=== PATIENT | male | born 1960 | race Caucasian/White ===

== ENCOUNTER 2022-09-05 13:33 | Outpatient (REF) | payer OTHER, SELFPAY ==
--- NOTE | 2022-09-05 14:46 | MHC.AU.HA1 ---
Hearing Aid Evaluation Date of Visit: 09/05/22 Historical Information: Description of Hearing: Mild to moderately-severe sensorineural hearing loss, bilaterally Current personal amplification information: Described at [facility] purchased 3 years ago at [facility] in [place] Summary: Raghu reported that he has had hearing loss for several years. He purchased hearing aids about three years ago but never fully acclimated to them despite multiple programming adjustments. He reported that he never wore them consistently because he did not hear naturally and heard too much static. Now the hearing aids are reportedly not working but he did not bring them to this appointment. Raghu is hoping new hearing aids will help ease some of his communication difficulties especially at work. 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 He also has trouble at home hearing the television as well as family members and often needs frequent repetition. Discussed realistic expectations of hearing aids and emphasized acclimatization period with importance of consistent use. Raghu reported that he is ready and motivated to try hearing aids again as he has several friends that have been successful with them. Hearing Aid Prescription: Based on the individual?s shared listening needs, communication environments, dexterity, desire for connectivity, and personal preferences, the following prescription for amplification has been made: Right ear: Make, Model, Color: Phonak Audeo L70-R Color: Champagne Battery Size: Rechargeable Director Physical Therapy/Slim Tube: 1P Type of Earmold/Dome/CShell/SlimTip: c-shell Left ear: Left ear prescription to be same as Right Hearing Aid above: Make, Model, Color: Phonak Audeo L70-R Color: Champagne Battery Size: Rechargeable Director Physical Therapy/Slim Tube: 2P Type of Earmold/Dome/CShell/SlimTip: c-shell Plan of Care: Patient wishes to purchase hearing aids as prescribed Action Taken/Action Needed: Earmold Impressions Taken. Hearing Instrument Fitting to be scheduled when materials arrive Primary Diagnosis: H90.3 Bilateral Sensorineural Hearing Loss Signature: Provider: Margie Rebollar, [facility]
== END 2022-09-05 13:34 | disposition home or self-care (01) ==
LOC: HO.HAP 13:33
PROVIDERS: Visit Provider Otolaryngology
DX: Z46.1 Encounter for fitting and adjustment of hearing aid (principal); H90.3 Sensorineural hearing loss, bilateral
CPT/HCPCS: 92591; V5275

== ENCOUNTER 2022-09-30 10:42 | Outpatient (REF) | payer OTHER, SELFPAY ==
--- NOTE | 2022-09-30 11:37 | MHC.AU.HA2 ---
Hearing Instrument Fitting- Adult- Binaural Date of Visit: 09/30/22 Hearing Instruments Dispensed: Right Ear: Sarkis, Model, Color, Serial Number: Shane Laurent L70-R SN: [id number] Color: Rustyagne Sound Designer Repair Warranty: 12/17/2025 Sound Designer Loss and Damage Warranty: 12/17/2025 [facility] Service Plan: 10/01/2023 Battery Size: Rechargeable Manager Machine/Slim Tube: 1P Earmold/Dome/CShell/SlimTip: c-shell SN: [id number] Aaron: 12/16/2022 Type of Wax Guard: CeruStop Left Ear: Sarkis, Model, Color, Serial Number: Shane Laurent L70-R SN: [id number] Color: Share Sound Designer Repair Warranty: 12/17/2025 Sound Designer Loss and Damage Warranty: 12/17/2025 [facility] Service Plan: 10/01/2023 Battery Size: Rechargeable Manager Machine/Slim Tube: 2P Earmold/Dome/CShell/SlimTip: c-shell SN: [id number] Aaron: 12/16/2022 Type of Wax Guard: CeruStop Summary of Fitting: Performed feedback corporate security manager and real ear measurements. Decreased to 80% gain level at Raghu's request. Discussed care, use, and rechargeability including manually turning on/off, volume control use, and changing wax guard. Practiced insertion/removal. Paired to cell phone and confirmed successful connection. Maverick will download the [email or web address] rosalva at home. Maverick has had hearing aids in the past that he never adapted to as he never wore consistently - discussed the importance of and reason for consistent use as well as the acclimatization period. Recommendations: A hearing instrument follow-up was scheduled. Diagnosis Code(s): Primary Diagnosis: H90.3 Bilateral Sensorineural Hearing Loss Signature: Provider: Margie Rebollar, [facility]
== END 2022-09-30 10:43 | disposition home or self-care (01) ==
LOC: HO.HAP 10:42
PROVIDERS: Visit Provider Otolaryngology
DX: Z46.1 Encounter for fitting and adjustment of hearing aid (principal); H90.3 Sensorineural hearing loss, bilateral
CPT/HCPCS: V5011; V5020; V5160; V5261; V5264

== ENCOUNTER 2022-10-20 09:59 | Outpatient (REF) | payer OTHER, SELFPAY ==
--- NOTE | 2022-10-20 10:27 | MHC.AU.HA3 ---
Hearing Instrument Follow-Up- Binaural Date of Visit: 10/20/22 Right Ear: Sarkis, Model, Color, Serial Number: Shane Laurent L70-R SN: [id number] Color: Noelle Well Puller Repair Warranty: 12/17/2025 Well Puller Loss and Damage Warranty: 12/17/2025 [facility] Service Plan: 10/01/2023 Battery Size: Rechargeable Greenhouse Technician/Slim Tube: 1P Earmold/Dome/CShell/SlimTip:c-shell SN: [id number] Aaron: 12/16/2022 Type of Wax Guard: CeruStop Dispensed By: [facility] Date of Fittin09/30/2022 Left Ear: Sarkis, Model, Color, Serial Number: Shane Laurent L70-R SN: [id number] Color: Noelle Well Puller Repair Warranty: 12/17/2025 Well Puller Loss and Damage Warranty: 12/17/2025 [facility] Service Plan: 10/01/2023 Battery Size: Rechargeable Greenhouse Technician/Slim Tube: 2P Earmold/Dome/CShell/SlimTip: c-shell SN: [id number] Aaron: 12/16/2022 Type of Wax Guard: CeruStop Dispensed By: [facility] Date of Fittin09/30/2022 Follow-Up Summary: Raghu reported that five days after being fit with hearing aids the right one stopped working and more recently the left one sounded weak. Upon inspection, both wax guards plugged. Otoscopy showed only slight wax, bilaterally. Reinstructed how to change wax guard. Data logging showed about 3 hours of use per day; however, Raghu stopped wearing the hearing aids once they stopped working. During the first five days, he noticed significant benefit from the hearing aids especially while watching television as well as through his cell phone. He requested an increase in volume so settings were increased to 90% gain level. Also reinstructed on volume control use. Raghu requested to schedule another follow up to check in, as he did not have ample time to use the hearing aids in his daily interactions. Also discussed calling as soon as problems arise. Recommendations: An additional follow-up was scheduled to monitor progress. Diagnosis Code(s): Primary Diagnosis: H90.3 Bilateral Sensorineural Hearing Loss Signature: Provider: Margie Rebollar, [facility]
== END 2022-10-20 10:00 | disposition home or self-care (01) ==
LOC: HO.HAP 09:59
PROVIDERS: Visit Provider Otolaryngology
DX: Z13.89 Encounter for screening for other disorder (principal)

== ENCOUNTER 2023-11-04 16:07 | Outpatient (REF) | payer SELFPAY | END 2023-11-04 16:08 | disposition home or self-care (01) | LOC: HO.HAP 16:07 | PROVIDERS: PCP Family Medicine; Visit Provider Otolaryngology | DX: Z46.1 Encounter for fitting and adjustment of hearing aid (principal); H90.3 Sensorineural hearing loss, bilateral | CPT/HCPCS: 92593 ==

== ENCOUNTER 2023-11-04 16:29 | Outpatient (REF) | payer SELFPAY | END 2023-11-04 16:30 | disposition home or self-care (01) | LOC: HO.HAP 16:29 | PROVIDERS: Visit Provider Family Medicine | DX: Z46.1 Encounter for fitting and adjustment of hearing aid (principal) | CPT/HCPCS: 92592 ==

== ENCOUNTER 2023-11-20 16:20 | Outpatient (REF) | payer SELFPAY | END 2023-11-20 16:21 | disposition home or self-care (01) | LOC: HO.HAP 16:20 | PROVIDERS: Visit Provider Family Medicine | DX: Z13.89 Encounter for screening for other disorder (principal) ==

== ENCOUNTER 2024-05-16 13:52 | Outpatient (REF) | payer OTHER, SELFPAY ==
--- NOTE | 2024-05-16 14:40 | MHC.AU.HA3 ---
Hearing Instrument Follow-Up- Binaural Date of Visit: 05/16/24 Right Ear: Sarkis, Model, Color, Serial Number: Shane Laurent L70-R SN: [id number] Color: Rustyagne Die Cast Engineer Repair Warranty: 12/17/2025 Die Cast Engineer Loss and Damage Warranty: 12/17/2025 [facility] Service Plan: 10/01/2023 Battery Size: Rechargeable Blender / Cook/Slim Tube: 1P Earmold/Dome/CShell/SlimTip:c-shell SN: [id number] Aaron: 12/16/2022 Type of Wax Guard: CeruStop Dispensed By: [facility] Date of Fittin09/30/2022 Left Ear: Make, Model, Color, Serial Number: Shane Laurent L70-R SN: [id number] Color: Rustyagne Die Cast Engineer Repair Warranty: 12/17/2025 Die Cast Engineer Loss and Damage Warranty: 12/17/2025 [facility] Service Plan: 10/01/2023 Battery Size: Rechargeable Blender / Cook/Slim Tube: 2P Earmold/Dome/CShell/SlimTip: c-shell SN: [id number] Aaron: 12/16/2022 Type of Wax Guard: CeruStop Dispensed By: [facility] Date of Fittin09/30/2022 Follow-Up Summary: Maverick reports that he has new insurance and would like to get his c-shells replaced. Both are missing wax guards. Reports feeling that aids are intermittent due to missing wax guards. Cleaned and checked aids, vacuumed out middleware engineer ports. Listening check positive. Advised his [employer] plan does not have hearing aid coverage and c-shells would still be OOP at this time. Quote $290 for pair. Maverick agrees to this. Ordering duplicates. Recommendations: Recommendations: Patient will be contacted when materials have arrived. Diagnosis Code(s): Primary Diagnosis: H90.3 Bilateral Sensorineural Hearing Loss Signature: Provider: Margie Vance, [facility]
== END 2024-05-16 13:53 | disposition home or self-care (01) ==
LOC: HO.HAP 13:52
PROVIDERS: Visit Provider Family Medicine
DX: Z13.89 Encounter for screening for other disorder (principal)

== ENCOUNTER 2024-05-30 14:12 | Outpatient (REF) | payer SELFPAY ==
--- NOTE | 2024-05-30 15:07 | MHC.AU.HA3 ---
Hearing Instrument Follow-Up- Binaural Date of Visit: 05/30/24 Right Ear: Make, Model, Color, Serial Number: Shane Laurent L70-R SN: [id number] Color: Rustyagne Stevedoring Supervisor Repair Warranty: 12/17/2025 Stevedoring Supervisor Loss and Damage Warranty: 12/17/2025 [facility] Service Plan: 10/01/2023 Battery Size: Rechargeable Guard Dance Hall/Slim Tube: 1P Earmold/Dome/CShell/SlimTip:c-shell SN: [id number] Aaron: 09/16/2024 Type of Wax Guard: CeruStop Dispensed By: [facility] Date of Fittin09/30/2022 Left Ear: Make, Model, Color, Serial Number: Shane Laurent L70-R SN: [id number] Color: Rustyagne Stevedoring Supervisor Repair Warranty: 12/17/2025 Stevedoring Supervisor Loss and Damage Warranty: 12/17/2025 [facility] Service Plan: 10/01/2023 Battery Size: Rechargeable Guard Dance Hall/Slim Tube: 2P Earmold/Dome/CShell/SlimTip: c-shell SN: [id number] Aaron: 09/16/2024 Type of Wax Guard: CeruStop Dispensed By: [facility] Date of Fittin09/30/2022 Follow-Up Summary: Dispensed new c-shells. Good subjective comfort and benefit reported. Gave Maverick his old c-shells to hold on to as back up. Recommendations: Recommendations: Hearing instrument follow-up or maintenance as needed. Diagnosis Code(s): Primary Diagnosis: H90.3 Bilateral Sensorineural Hearing Loss Signature: Provider: Margie Vance, CCC-A
== END 2024-05-30 14:13 | disposition home or self-care (01) ==
LOC: HO.HAP 14:12
PROVIDERS: Visit Provider Family Medicine
DX: Z46.1 Encounter for fitting and adjustment of hearing aid (principal); H90.3 Sensorineural hearing loss, bilateral
CPT/HCPCS: V5264

== ENCOUNTER 2025-05-04 11:04 | Outpatient (REF) | payer SELFPAY | END 2025-05-04 11:05 | disposition home or self-care (01) | LOC: HO.HAP 11:04 | PROVIDERS: Visit Provider Family Medicine | DX: Z13.89 Encounter for screening for other disorder (principal) ==

== ENCOUNTER 2025-05-31 14:48 | Outpatient (REF) | payer SELFPAY ==
--- OUTSIDE RECORDS SUMMARY | 2025-05-31 17:56 | XMS_ITS | Clinical Summary ---
Author Organization [facility] [address] [facility] Building Address [address] [place], [place] Phone Care Team Providers Care Chemical Production Technician Name Role Phone Olga Doss DO Primary Care Provider [phone] Allergies No known active allergies Medications meclizine (ANTIVERT) 12.5 mg tablet Take 1 Tablet by mouth 3 times daily as needed (dizziness) . 04/20/20 24 Active cyanocobalamin (VITAMIN B-12) 1,000 mcg tablet Take 1 tablet (1,000 mcg total) by mouth 1 (one) time each day. 03/17/20 20 Active metoprolol tartrate (LOPRESSOR) 50 mg tablet TAKE ONE TABLET BY MOUTH TWICE A DAY 180 tablet 1 08/30/19 25 Active bismuth subsalicylate 525 mg/15 mL suspensionIndicat ions:Helicobacter pylori infection Take 15 mL by mouth 4 (four) times a day. 840 mL 04/30/20 25 Active pravastatin (PRAVACHOL) 20 mg tablet TAKE ONE TABLET BY MOUTH EVERY DAY 30 tablet 05/17/20 25 Active pantoprazole (PROTONIX) 40 mg EC tablet TAKE ONE TABLET BY MOUTH EVERY DAY 30 tablet 05/17/20 25 Active amLODIPine (NORVASC) 10 mg tablet TAKE ONE TABLET BY MOUTH EVERY DAY 30 tablet 05/17/20 25 Active lisinopril (PRINIVIL,ZESTRIL ) 40 mg tablet TAKE ONE TABLET BY MOUTH EVERY DAY 30 tablet 05/17/20 Active allopurinoL (ZYLOPRIM) 100 mg tablet TAKE TWO TABLETS BY MOUTH EVERY DAY 60 tablet 05/17/20 Active pravastatin (PRAVACHOL) 20 mg tablet TAKE ONE TABLET BY MOUTH EVERY DAY 90 tablet 1 11/19/19 25 025 Discontinued pantoprazole (PROTONIX) 40 mg EC tablet TAKE ONE TABLET BY MOUTH EVERY DAY 90 tablet 1 11/19/19 25 025 Discontinued amLODIPine (NORVASC) 10 mg tablet TAKE ONE TABLET BY MOUTH EVERY DAY 90 tablet 1 11/19/19 25 025 Discontinued lisinopril (PRINIVIL,ZESTRIL ) 40 mg tablet TAKE ONE TABLET BY MOUTH EVERY DAY 90 tablet 1 11/19/19 025 Discontinued allopurinoL (ZYLOPRIM) 100 mg tablet TAKE TWO TABLETS BY MOUTH EVERY DAY 180 tablet 1 11/19/19 025 Discontinued metroNIDAZOLE (FLAGYL) 250 mg tabletIndications :Helicobacter pylori infection Take 1 tablet (250 mg total) by mouth 4 (four) times a day for 14 days. Do not use mouth wash or consume alcohol until 48 hours after last dose 56 tablet 04/30/20 025 tetracycline (ACHROMYCIN,SUMYC IN) 500 mg capsuleIndication s:Helicobacter pylori infection Take 1 capsule (500 mg total) by mouth 4 (four) times a day for 14 days. 56 capsule 04/30/20 025 Active Problems Problem Noted Date Diagnosed Date Dyspnea 10/28/2022 Overview (05/17/2024): Last Assessment & Plan: Given the normal results of the pulmonary function test, his absence of pulmonary symptoms like wheezing or cough, normal chest x-ray and confident that the cause of the dyspnea is not pulmonary. He may have some deconditioning but I am interested to know the results of the echocardiogram. Given his cardiovascular risk factors I do think it is appropriate for him to be evaluated by cardiology for possible stress test. 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 Allopurinol started 08/14 Primary osteoarthritis of both hands 06/29/2018 DDD (degenerative disc disease), lumbar 07/23/20 17 Foot pain 07/23/2017 GERD (gastroesophageal reflux disease) 6 Overview (05/17/2024): 10/12 normal EGD Hyperlipidemia 08/08/2015 Hypertension 08/08/2015 Encounters Date Type Department Care Team Description 05/16/2025 9:15 AM EDT Office Visit Orthopedic Surgery [facility] [address] [phone] Marla Sprague MD Calcific tendinitis of left shoulder (Primary Dx) 04/30/2025 Results Follow-Up Gastroenterology - [place] 175 [facility] 175 [facility] [address] [place] [address] Augusto Trejo MD 04/13/2025 9:10 AM EDT Ancillary Procedure Orthopedic Surgery - [place] [address] [phone] Calcific tendinitis of left shoulder 04/13/2025 8:45 AM EDT Office Visit Orthopedic Surgery [facility] [address] [phone] Marla Sprague MD Calcific tendinitis of left shoulder (Primary Dx) 03/28/2025 8:53 AM EDT Anesthesia Event [facility] Endoscopy [address] [place] [address] Zack Gonzalez MD 03/28/2025 7:26 AM EDT - 03/28/2025 11:59 PM EDT Hospital Encounter [facility] End[facility] [address] [place] [address] Augusto Trejo MD Georgette, Nathaniel, CRNA Spencer, Mark A, MD Dyspepsia; Gastroesophageal reflux disease, unspecified whether esophagitis present; Dysphagia, unspecified type Discharge Disposition: Home or Self Care 03/21/2025 9:00 AM EDT Office Visit Orthopedic Surgery - [place] [address] [place] [address] Charleen Kenny PA Calcific tendinitis of left shoulder (Primary Dx); Subacromial bursitis of right shoulder joint from Last 3 Months Immunizations Immunization Administration Dates Next Due Influenza Quadravalent, MDCK , 0.5ml, preservative free (Flucelvax) 6mo and older 05/25/2020,06/02/2018 Influenza trivalent, MDCK, 0 .5mL, preservative free (Flucelvax) 6mo and older 06/16/2024 Td Tetanus diptheria (Tdvax) 7yo and older 09/04 Tdap Tetanus diptheria acell ular pertussis (Boostrix; Adacel) 7yo and older 06/24/2007 Surgical History Surgery Date Site/Laterality Comments OTHER SURGICAL HISTORY 10/2018 Right PROCEDURE: ---- OTHER ----; COMMENT: ulnar entrapment at elbow FOOT SURGERY Left PROCEDURE: HISTORICAL FOOT SURGERY OTHER SURGICAL HISTORY PROCEDURE: ---- OTHER ----; COMMENT: superficial cyst removal from back FOOT SURGERY 11/19/2018 Left PROCEDURE: HISTORICAL FOOT SURGERY; COMMENT: left 3rd webspace bursectomy OTHER SURGICAL HISTORY 03/2021 PROCEDURE: HISTORICAL CA BASAL CELL; COMMENT: R neck Medical History Medical History Date Comments GERD (gastroesophageal reflux disease) 08/08/2015 DX:GERD (gastroesophageal reflux disease) Hyperlipidemia 08/08/2015 DX:Hyperlipidemi a Hypertension 08/08/2015 DX:Hypertension DDD (degenerative disc disease), lumbar 07/23/20 DX:DDD (degenerative disc disease), lumbar Gout 08/05/2018 DX:Gout; COMMENT : Recurrent attacks - feet. Allopurinol started 08/14 Blood pressure check DX:Blood pr essure check History of basal cell carcinoma 03/18/2021 DX:History of basal cell carcinoma; COMMENT: BCC 03/16 right shoulder (nodular) History of basal cell carcinoma 03/18/2021 DX:History of basal cell carcinoma Family History Medical History Relation Name Comments Alzheimer's disease Father Heart attack Mother Hypertension Mother Leukemia Sister Diabetes Neg Hx Relation Name Status Comments Father Mother Sister Social History Tobacco Use Types Packs/Day Years Used Date Smoking Tobacco: Never Smokeless Tobacco: Never Tobacco Cessation:Counseling Given: Not Answered Alcohol Use Standard Drinks/Week Comments Yes 0 (1 standard drink = 0.6 oz pur e alcohol) Interpersonal Safety Answer Date Record ed Physical Abuse Unrecognized value 03/28/2025 Verbal Abuse Unrecognized value 03/28/2025 Sex and Gender Information Value Date Recorded Sex Assigned at Male 10/10/2024 9:17 AM EDT Legal Sex Male 12:21 PM EST Gender Identity Male 10/10/2024 9:17 AM EDT Sexual Orientation Straight 10/10/2024 9: 17 AM EDT Obstetrics History Last Filed Vital Signs Vital Sign Reading Time Taken Comments Blood Pressure 113/87 03/28/2025 9:25 AM EDT Pulse 60 03/28/2025 9:25 AM EDT Temperature 36.5 C (97.7 F) 03/28/2025 8:39 AM EDT Respiratory Rate 16 03/28/2025 9:25 AM EDT Oxygen Saturation 99% 03/28/2025 9:25 AM EDT Inhaled Oxygen Concentration - - Weight 75.8 kg (167 lb) 05/16/2025 9:27 AM EDT Height 167.6 cm (5' 5.98 ) 05/16/2025 9:27 AM ED T Body Mass Index 26.97 05/16/2025 9:27 AM EDT Plan of Treatment Upcoming Encounters Date Type Department Care Team (Late st Contact Info) Description 06/20/2025 8:30 AM EST Office Visit [facility] Medicine - [facility] [address] [place], [place] [phone] Pilo Ortiz PA [address] [place] [address] Health Maintenance Due Date Last Done Comments Zoster Vaccines (1 of 2) 1980 Pneumococcal Vaccine: 50+ Years (1 of 1 - PCV) 2011 HIV Screening 07/05/2022 Social Influencers of Health Screening 07/05/2022 Depression Screening 07/27/2024 COVID-19 Vaccine (4 - 2024-2 6 season) 2025 07/08/2021, 10/30/2020, 10/09/2020 Influenza Vaccine (#1) 2025 , 05/25/2020, 06/02/2018 Hypertension/CHF/CAD Annual BMP Blood Test 09/01/2025 09/01/2024, 04/20/2024, 04/20/2024 DTaP,Tdap,and Td Vaccines (3 - Td or Tdap) 09/04/2027 09/04/2017, 06/24/2007 Cholesterol Screening (Lipid Panel) 04/20/2029 04/20/2024, 04/20/2024 Colorectal Cancer Screening: Colonoscopy 03/16/2030 03/16/2020 RSV Immunization Adult Patients (1 - 1-dose 75+ series) 2036 Hepatitis C Screening Completed 02/10/2017 HIB Vaccines Aged Out No longer eligi ble based on patient's age to complete this topic HPV Vaccines Aged Out No longer eligi ble based on patient's age to complete this topic Hepatitis A Vaccines Aged Out No long er eligible based on patient's age to complete this topic Hepatitis B Vaccines Aged Out No long er eligible based on patient's age to complete this topic IPV Vaccines Aged Out No longer eligi ble based on patient's age to complete this topic MMR Vaccines Aged Out No longer eligi ble based on patient's age to complete this topic Meningococcal ACWY Vaccine Aged Out N o longer eligible based on patient's age to complete this topic Meningococcal B Vaccine Aged Out No l onger eligible based on patient's age to complete this topic RSV Immunization Patients Under 20 months Aged Out No longer eligible b ased on patient's age to complete this topic Varicella Vaccines Aged Out No longer eligible based on patient's age to complete this topic Procedures Procedure Name Priority Date/Time Associated Diagnosis Comments US INJ TENDON ORIGIN/INSERT SGL Routine 04/13/2025 9:08 AM EDT Calcific tendinitis of left shoulder NE ARTHROCENTESIS/ASPIRAT ION/INJECTION MAJOR JOINT/BURSA W/O U/S GUIDANCE Routine 04/13/2025 8:45 AM EDT Calcific tendinitis of left shoulder EGD Routine 03/28/2025 9:04 AM EDT Dyspepsia Gastroesophageal reflux disease, unspecified whether esophagitis present Dysphagia, unspecified type TISSUE EXAM Routine 03/28/2025 9:01 AM EDT Dyspepsia Gastroesophageal reflux disease, unspecified whether esophagitis present Dysphagia, unspecified type COMPREHENSIVE METABOLIC PANEL Routine 09/01/2024 11:46 AM EST Dyspnea, unspecified type LIPID PANEL Routine 04/20/2024 COLONOSCOPY Routine 03/16/2020 HEPATITIS C SCREENING Routine 02/10/2017 from Last 3 Months or Most Recently Relevant to Health Maintenance Results * US Inj Tendon Origin/insert Sgl (04/13/2025 9:08 AM EDT) Anatomical Region Laterality Modality Extremity Ultrasound Narrative 04/13/2025 10:47 AM EDT [place] note: Left Shoulder ultrasound-guided barbotage for calcific tendinopathy. Risk including infection,, neurovascular injury and tendon rupture were thoroughly discussed with the patient. The patient understood the risks and gave verbal consent for the procedure. The anterior shoulder was prepped with Chloro-prep after anatomical landmarks where palpated and visualized with ultrasound. Ethyle chloride was used as to topical anesthetic. Then using a 23-gauge 1-1/2 inch needle lidocaine 2 mL was used as a local anesthetic and under ultrasound guidance the needle was guided to the calcific deposit where multiple passes were made through to the deposit and lidocaine 4cc was injected for anesthesia. trace debris was aspirated. Using sterile technique under ultrasound guidance without complications. The patient tolerated the procedure well. Aftercare was thoroughly discussed with the patient. Images were recorded and will permanently stored in patients medical record. PROCEDURE: Left Shoulder Subdeltoid subacromial bursal injection forcalcific tendonosis . Risk including infection, post-injection steriod flare, hypopigmentation, neurovascular injury and fat atrophy, were thoroughly discussed with the patient. The patients understood the risks and gave verbal consent for the procedure. The left shoulder was prepped with Chloro-prep after anatomical landmarks where palpated and visualized with ultrasound. Ethyle chloride was used as to topical anesthetic. Then using a 23-gauge 1-1/2 inch needle after which lidocaine 2 mL was used as a local anesthetic Kenalog 40mg and lidocaine 2 cc were injected into the subacromial bursa using sterile technique under ultrasound guidance without complications. The patient tolerated the procedure well. Aftercare was thoroughly discussed with the patient. Images were recorded and will permanently stored in patients medical record. us Marla Sprague MD IMG US PROCEDURES Final Result * NE ARTHROCENTESIS/ASPIRATION/INJECTION MAJOR JOINT/BURSA W/O U/S GUIDANCE (04/13/2025 8:45 AM EDT) Narrative Marla Sprague MD - 04/13/2025 8:45 AM EDT Marla Sprague MD 04/13/2025 10:49 AM L Inj/Asp: L subacromial bursa Indications: pain Details: 22 G needle, (guidance: US guided ) Medications: 4 mL lidocaine 1 %; 40 mg triamcinolone acetonide 40 mg/mL Outcome: tolerated well, no immediate complications See imaging result note for full details of ultrasound-guided barbotage procedure and subacromial cortisone injection. Informed Consent: Laterality: Left Relevant images/test results available and reviewed: yes Health status cleared: Yes Procedure/treatment, purpose, treatment alternatives, risks/potential complications and benefits explained: yes Risk/complications/benefits details: Include bleeding, infection, increase in pain Patient questions answered: yes Patient agrees, verbalizes understanding, and wants to proceed: yes Consent given by: Patient Informed consent discussion completed by Physician/SHUKRI with patient: Verbal Pre-procedure timeout performed: yes us Marla Sprague MD IN CLINIC/BEDSIDE ORDERABLES F inal Result * EGD Anesthesia - MAC; [facility] ENDOSCOPY (03/28/2025 9:04 AM EDT) Anatomical Region Laterality Modality Endoscopy 03/28/2025 8:55 AM EDT Impressions 03/28/2025 9:06 AM EDT - Normal examined duodenum. - Gastritis. Biopsied. - Normal esophagus. Recommendation: - Discharge patient to home. - Await pathology results. - Return to GI clinic as previously scheduled. Narrative 03/28/2025 9:06 AM EDT [facility] GI Patient Name: Raghu Angela Procedure Date: 03/28/2025 8:55 AM Date of : 1960 Age: 64 Gender: Male Note Status: Finalized Attending MD: Augusto Trejo MD, Procedure Date No Time: 03/28/2025 Procedure: Upper GI endoscopy Indications: New-onset upper abdominal symptoms in patient older than 50 years, Dyspepsia Providers: Augusto Trejo MD Referring MD: Augusto Trejo MD Medicines: Monitored Anesthesia Care Complications: No immediate complications. Estimated blood loss: Minimal. Estimated Blood Loss: Estimated blood loss was minimal. Procedure: Pre-Anesthesia Assessment: - Prior to the procedure, a History and Physical was performed, and patient medications and allergies were reviewed. The patient is competent. The risks and benefits of the procedure and the sedation options and risks were discussed with the patient. All questions were answered and informed consent was obtained. Patient identification and proposed procedure were verified by the physician, the nurse, the employment coach and the telemetry technician in the pre-procedure area in the endoscopy suite. Mental Status Examination: alert and oriented. Airway Examination: normal oropharyngeal airway and neck mobility. Respiratory Examination: clear to auscultation. CV Examination: normal. Prophylactic Antibiotics: The patient does not require prophylactic antibiotics. Prior Anticoagulants: The patient has taken no anticoagulant or antiplatelet agents. ASA Grade Assessment: II - A patient with mild systemic disease. After reviewing the risks and benefits, the patient was deemed in satisfactory condition to undergo the procedure. The anesthesia plan was to use monitored anesthesia care (MAC). Immediately prior to administration of medications, the patient was re-assessed for adequacy to receive sedatives. The heart rate, respiratory rate, oxygen saturations, blood pressure, adequacy of pulmonary ventilation, and response to care were monitored throughout the procedure. The physical status of the patient was re-assessed after the procedure. After obtaining informed consent, the endoscope was passed under direct vision. Throughout the procedure, the patient's blood pressure, pulse, and oxygen saturations were monitored continuously. The Olympus Gastroscope was introduced through the mouth, and advanced to the second part of duodenum. The upper GI endoscopy was accomplished without difficulty. The patient tolerated the procedure well. Findings: The examined duodenum was normal. Diffuse moderate inflammation characterized by congestion (edema), erythema and granularity was found in the gastric body and in the gastric antrum. Biopsies were taken with a cold forceps for histology. Estimated blood loss was minimal. The cardia and gastric fundus were normal on retroflexion. The esophagus was normal. Procedure Code(s): --- Professional --- 48028, Esophagogastroduodenoscopy, flexible, transoral; with biopsy, single or multiple Diagnosis Code(s): --- Professional --- K29.70, Gastritis, unspecified, without bleeding CPT copyright 202 [employer]. All rights reserved. The codes documented in this report are preliminary and upon program manager slp review may be revised to meet current compliance requirements. Augusto Trejo MD 03/28/2025 9:06:13 AM This report has been signed electronically.Augusto Trejo MD Number of Addenda: 0 Note Initiated On: 03/28/2025 8:55 AM Scope In: Scope Out: Endoscopy Department at [facility] - [address] [place] [id number] Procedure Note Augusto Trejo MD - 03/28/2025 [facility] GI Patient Name: Raghu Angela Procedure Date: 03/28/2025 8:55 AM Date of : 1960 Age: 64 Gender: Male Note Status: Finalized Attending MD: Augusto Trejo MD, Procedure Date No Time: 03/28/2025 Procedure: Upper GI endoscopy Indications: New-onset upper abdominal symptoms in patient older than 50 years, Dyspepsia Providers: Augusto Trejo MD Referring MD: Augusto Trejo MD Medicines: Monitored Anesthesia Care Complications: No immediate complications. Estimated blood loss: Minimal. Estimated Blood Loss: Estimated blood loss was minimal. Procedure: Pre-Anesthesia Assessment: - Prior to the procedure, a History and Physicalwas performed, and patient medications and allergieswere reviewed. The patient is competent. The risks and benefits of the procedure and the sedation optionsand risks were discussed with the patient. Allquestions were answered and informed consent was obtained. Patient identification and proposed procedure were verified by the physician, the nurse, theanesthetist and the telemetry technician in the pre-procedure area in the endoscopy suite. Mental Status Examination: alertand oriented. Airway Examination: normal oropharyngeal airway and neck mobility. Respiratory Examination: clear to auscultation. CV Examination: normal. Prophylactic Antibiotics: The patient does notrequire prophylactic antibiotics. Prior Anticoagulants: The patient has taken no anticoagulant or antiplatelet agents. ASA Grade Assessment: II - A patient withmild systemic disease. After reviewing the risks and benefits, the patient was deemed in satisfactory condition to undergo the procedure. The anesthesia plan was to use monitored anesthesia care (MAC). Immediately prior to administration of medications, the patient was re-assessed for adequacy to receive sedatives. The heart rate, respiratory rate, oxygen saturations, blood pressure, adequacy of pulmonary ventilation, and response to care were monitored throughout the procedure. The physical status ofthe patient was re-assessed after the procedure. After obtaining informed consent, the endoscope was passed under direct vision. Throughout theprocedure, the patient's blood pressure, pulse, and oxygen saturations were monitored continuously. TheOlympus Gastroscope was introduced through the mouth, and advanced to the second part of duodenum. The upperGI endoscopy was accomplished without difficulty. The patient tolerated the procedure well. Findings: The examined duodenum was normal. Diffuse moderate inflammation characterized by congestion (edema), erythema and granularity wasfound in the gastric body and in the gastric antrum. Biopsies were taken with a cold forceps forhistology. Estimated blood loss was minimal. The cardia and gastric fundus were normal on retroflexion. The esophagus was normal. Procedure Code(s): --- Professional --- 54729, Esophagogastroduodenoscopy, flexible, transoral; with biopsy, single or multiple Diagnosis Code(s): --- Professional --- K29.70, Gastritis, unspecified, without bleeding CPT copyright 2020 [employer]. All rights reserved. The codes documented in this report are preliminary and upon program manager slp reviewmay be revised to meet current compliance requirements. Augusto Trejo MD 03/28/2025 9:06:13 AM This report has been signed electronically.Augusto Trejo MD Number of Addenda: 0 Note Initiated On: 03/28/2025 8:55 AM Scope In: Scope Out: Endoscopy Department at [facility] - [address] [place] [id number] IMPRESSION: - Normal examined duodenum. - Gastritis. Biopsied. - Normal esophagus. Recommendation: - Discharge patient to home. - Await pathology results. - Return to GI clinic as previously scheduled. us Augusto Trejo MD GI~PROCEDURE ORDERABLES Fin al Result * Tissue exam (03/28/2025 9:01 AM EDT) Final Diagnosis Stomach, biopsies: Helicobacter pylori gastritis. Note: Routine sections show active chronic gastritis with Helicobacter identified on H&E stain. 03/29/2025 12:14 PM EDT [facility] Gross Description A. Stomach, biopsies: Labeled stomach biopsies . Received in formalin, are four irregular soft to rubbery, daniel-pink to red, tissue fragments, approximately ranging from 0.35 cm to 0.8 cm in greatest diameters, which are wrapped in paper and submitted in toto in one cassette, four pieces, multiple levels. hs/DG 03/29/2025 12:14 PM EDT [facility] Disclaimer Unless otherwise specified, all tissue is 10% NB formalin fixed and paraffin embedded. 03/29/2025 12:14 PM EDT [facility] Tissue Stomach structure / Unknown 03/28/2025 9:01 AM EDT 03/28/2025 9:59 AM EDT us Augusto Trejo MD LAB PATHOLOGY ORDERABLES Fi nal Result [facility] [address] [place] [address], [place] [phone] * (ABNORMAL) Comprehensive metabolic panel (09/01/2024 11:46 AM EST) Sodium 140 133 - 145 mmol/L LAB CHEMISTRY METHOD 09/01/2024 2:43 PM [facility] Potassium 4.2 3.5 - 5.5 mmol/L LAB CHEMISTRY METHOD 09/01/2024 2:43 PM [facility] Chloride 108 96 - 110 mmol/L LAB CHEMISTRY METHOD 09/01/2024 2:43 PM [facility] CO2 26 21 - 32 mmol/L LAB CHEMISTRY METHOD 09/01/2024 2:43 PM [facility] Anion Gap 6 3 - 11 LAB CHEMISTRY METHOD 09/01/2024 2:43 PM [facility] Glucose 136(H) 70 - 100 mg/dL LAB CHEMISTRY METHOD 09/01/2024 2:43 PM [facility] BUN 19 5 - 25 mg/dL LAB CHEMISTRY METHOD 09/01/2024 2:43 PM [facility] Creatinine 1.04 0.70 - 1.30 mg/dL LAB CHEMISTRY METHOD 09/01/2024 2:43 PM [facility] eGFR 81 >=60 mL/min/1. 73m2 LAB CHEMISTRY METHOD 09/01/2024 2:43 PM [facility] Comment:Calculation based on the Chronic Kidney Disease Epidemiology Collaboration (CKD-EPI) equation refit without adjustment for race. BUN/Creatinine Ratio 18.3 LAB CHEMISTRY METHOD 09/01/2024 2:43 PM [facility] Calcium 9.4 8.5 - 10.5 mg/dL LAB CHEMISTRY METHOD 09/01/2024 2:43 PM [facility] AST (SGOT) 24 10 - 42 unit/L LAB CHEMISTRY METHOD 09/01/2024 2:43 PM [facility] ALT (SGPT) 38 10 - 60 unit/L LAB CHEMISTRY METHOD 09/01/2024 2:43 PM EST [facility] Alkaline Phosphatase 59 42 - 121 unit/L LAB CHEMISTRY METHOD 09/01/2024 2:43 PM [facility] Total Protein 7.0 6.0 - 8.0 g/dL LAB CHEMISTRY METHOD 09/01/2024 2:43 PM [facility] Albumin 4.0 3.2 - 5.0 g/dL LAB CHEMISTRY METHOD 09/01/2024 2:43 PM [facility] Total Bilirubin 0.9 0.0 - 1.4 mg/dL LAB CHEMISTRY METHOD 09/01/2024 2:43 PM [facility] Blood Venous blood specimen / Unknown Venipuncture / Unknown 09/01/2024 11:46 AM EST 09/01/2024 11:46 AM EST Pilo PORTILLO LAB BLOOD ORDERABLES Fi nal Result [facility] [address] [place] [address], * (ABNORMAL) Lipid panel (04/20/2024) [facility] LDL/HDL Ratio 4 0 - 4 Triglycerides 182(A) 0 - 150 mg/dL Cholesterol 155 0 - 200 mg/dL HDL 36(A) >=40 mg/dL LDL Cholesterol 83 0 - 100 mg/dL Blood Venous blood specimen / Unknown Historical Provider LAB BLOOD ORDERABLES Amber l Result * Colonoscopy (03/16/2020) [facility] Colonoscopy abstracted, no interpretation Anatomical Region Laterality Modality Other Historical Provider HEALTH MAINTENANCE Final Result * Hepatitis C Screening (02/10/2017) [facility] Hepatitis C Screening abstracted us Historical Provider HEALTH MAINTENANCE Final Result from Last 3 Months or Most Recently Relevant to Health Maintenance Insurance [facility] [employer] Care Teams Chemical Production Technician Relationship Specialty Start Date End Date Olga Doss DO [address] [place] [address] PCP - General Internal Medicine 05/16/24
--- OUTSIDE RECORDS SUMMARY | 2025-05-31 17:56 | XMS_ITS | Encounter Summary ---
Author Organization [facility] Address [address] [place] [address] Care Team Providers Care Sales And Business Development Manager Name Role Phone Olga Doss Primary Care Provider [phone] Encounter Details Date Type Department Care Team ([facility] st Contact Info) Description 04/30/2025 Results Follow-Up Gastroenterology - [place] 175 [facility] 175 [facility] [address] [place] [phone] Augusto Trejo MD 299 [facility] [address] [place] [address] Social History Tobacco Use Types Packs/Day Years Used Date Smoking Tobacco: Never Smokeless Tobacco: Never Alcohol Use Standard Drinks/Week Comments Yes 0 [...] Orientation Straight 10/10/2024 9: 17 AM EDT documented as of this encounter Ordered Prescriptions Prescription Sig Dispense Quantity Refills Last Filled Start Date End Date bismuth subsalicylate 525 mg/15 mL suspensionIndicatio ns:Helicobacter pylori infection Take 15 mL by mouth 4 (four) times a day. 840 mL 04/30/2025 tetracycline (ACHROMYCIN,SUMYCIN ) 500 mg capsuleIndications: Helicobacter pylori infection Take 1 capsule (500 mg total) by mouth 4 (four) times a day for 14 days. 56 capsule 04/30/2025 metroNIDAZOLE (FLAGYL) 250 mg tabletIndications:H elicobacter pylori infection Take 1 tablet (250 mg total) by mouth 4 (four) times a day for 14 days. Do not use mouth wash or consume alcohol until 48 hours after last dose 56 tablet 04/30/2025 documented in this encounter Progress Notes * Augusto Trejo MD - 04/30/2025 4:12 PM EDT According to the biopsies we took during your endoscopy, you have Helicobacter pylori detected in your stomach. This type of bacteria which can results with chronic infection of the stomach lining, and thereby resulting with gastritis, stomach ulcers, and can lead to stomach malignancy. Therefore, we would like to treat this with a course of antibiotics. I will be sending antibiotics as well as an acid reducing agent during the course of the therapy. Once the therapy is completed, you will contact our office for a follow-up. I would like to personally thank you for allowing us to take care of you. Please don't hesitate to call us for any questions or concerns. Regards, Car Trejo MD Board Certified Gastroenterology and Internal Medicine Transplant Hepatology [facility] documented in this encounter Plan of Treatment Upcoming Encounters Date Type Department Care Team (Late st Contact Info) Description 06/20/2025 8:30 AM EST Office Visit Internal Medicine - [place] [address] [place] [address] Pilo Ortiz PA [address] [place] [address] documented as of this encounter Visit Diagnoses Diagnosis Helicobacter pylori infection- Primary Helicobacter pylori (H. pylori) documented in this encounter Care Teams Sales And Business Development Manager Relationship Specialty Start Date End Date Olga Doss DO 305 [facility] [place] [address] PCP - General Internal Medicine 05/16/24 documented as of this encounter
--- OUTSIDE RECORDS SUMMARY | 2025-05-31 17:56 | XMS_ITS | Clinical Summary ---
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 Family History Medical History Relation Name Comments Diabetes Brother Heart disease Mother Relation Name Status Comments Brother Mother Social History Tobacco Use Types Packs/Day Years Used Date Smoking Tobacco: Never Smokeless Tobacco: Never Alcohol Use Standard Drinks/Week Comments No 0 (1 standard drink = 0.6 oz pur e alcohol) Sex and Gender Information Value Date Recorded Sex Assigned at Not on file Gender Identity Not on file Sexual Orientation Not on file Last Filed Vital Signs Vital Sign Reading Time Taken Comments Blood Pressure - - Pulse - - Temperature - - Respiratory Rate - - Oxygen Saturation - - Inhaled Oxygen Concentration - - Weight 80.7 kg (178 lb) 10/06/2018 10:45 AM EDT Height 170.2 cm (5' 7 ) 10/06/2018 10:45 AM EDT Body Mass Index 27.88 10/06/2018 10:45 AM EDT Plan of Treatment Health Maintenance Due Date Last Done Comments Hepatitis C Screening 1961 COVID-19 Vaccine (#1) 02/20/1962 Depression Screening 1973 BMI Counseling 1979 Preventative Health Evaluation 1979 Colon Cancer Screening (Colonoscopy) 2006 Shingrix-Zoster Vaccine (1 of 2) 2011 DTap / Tdap / Td (2 - Td or Tdap) 06/24/2017 007 Influenza Vaccine (#1) 2025 06/02/2018 RSV Adult > 60+ Yrs or Pregn ant (1 - 1-dose 75+ series) 2036 Hepatitis B Vaccines Aged Out No long er eligible based on patient's age to complete this topic Pneumococcal Vaccine Aged Out No long er eligible based on patient's age to complete this topic RSV Ped < 20 months Aged Out No longe r eligible based on patient's age to complete this topic Care Teams Hand Counter Relationship Specialty Start Date End Date Wild Arriaga MD [address] [place] [address] PCP - General Internal Medicine 10/06/18
--- OUTSIDE RECORDS SUMMARY | 2025-05-31 17:56 | XMS_ITS ---
Author Name [facility] Organization Unknown Care Team Organization Name Specialty Phone Email Start Date End Da te [facility] Kayleigh Paulino Primary Care 12/01/20222023 [facility] Shanika Alexandra Primary Care 06/03/2022
== END 2025-05-31 14:49 | disposition home or self-care (01) ==
LOC: HO.HAP 14:48
PROVIDERS: Visit Provider Otolaryngology
DX: Z46.1 Encounter for fitting and adjustment of hearing aid (principal); H90.3 Sensorineural hearing loss, bilateral
CPT/HCPCS: 92593

== ENCOUNTER 2025-06-13 09:23 | Outpatient (REF) | payer SELFPAY | END 2025-06-13 09:24 | disposition home or self-care (01) | LOC: HO.HAP 09:23 | DX: Z13.89 Encounter for screening for other disorder (principal) ==

== ENCOUNTER 2025-06-14 10:19 | Outpatient (REF) | payer SELFPAY ==
--- OUTSIDE RECORDS SUMMARY | 2025-06-14 19:47 | XMS_ITS | Clinical Summary ---
Author Organization [facility] Address [address] [place] [address] Care Team Providers Care Leadership Intern Name Role Phone Wild Arriaga MD Primary Care Provider [phone] Allergies No known active allergies Medications No [...] age to complete this topic Care Teams Leadership Intern Relationship Specialty Start Date End Date Wild Arriaga MD [address] [place] [address] PCP - General Internal Medicine 10/06/18
--- OUTSIDE RECORDS SUMMARY | 2025-06-14 19:47 | XMS_ITS | Clinical Summary ---
Author Organization [facility] [address] [facility] Address [address] [place], [place] Phone Care Team Providers Care Pricing Director Name Role Phone Olga Doss DO Primary Care Provider [phone] Allergies No known active allergies Medications meclizine [...] 90 tablet 1 11/19/19 25 025 Discontinued allopurinoL (ZYLOPRIM) 100 mg tablet TAKE TWO TABLETS BY MOUTH EVERY DAY 180 tablet 1 11/19/19 025 Discontinued Active Problems Problem Noted Date Diagnosed Date [...] 9:15 AM EDT Office Visit Orthopedic Surgery [facility] [address] [facility] [address] [place] [address] Marla Sprague MD Calcific tendinitis of left shoulder (Primary Dx) 04/30/2025 Results Follow-Up Gastroenterology - [place] 175 [facility] 175 [facility] [address] [place] [address] Augusto Trejo MD 04/13/2025 9:10 AM EDT Ancillary Procedure Orthopedic Surgery [facility] [address] 175 [facility] [address] [place] [address] Calcific tendinitis of left shoulder 04/13/2025 8:45 AM EDT Office Visit Orthopedic [facility] [address] [facility] [address] [place] [address] Marla Sprague MD Calcific tendinitis of left shoulder (Primary Dx) 03/28/2025 8:53 AM EDT Anesthesia Event [facility] [address] [place] [address] Zack Gonzalez MD 03/28/2025 7:26 AM EDT - 03/28/2025 11:59 PM EDT Hospital Encounter [facility] [address] [place] [address] Augusto Trejo MD Georgette, Nathaniel, CRNA Spencer, Mark A, MD Dyspepsia; Gastroesophageal reflux disease, unspecified whether esophagitis present; Dysphagia, unspecified type Discharge Disposition: Home or Self Care 03/21/2025 9:00 AM EDT Office Visit Orthopedic Surgery [facility] 175 [facility] [address] [place] [address] Charleen Kenny PA Calcific tendinitis of left [...] AM EST [facility] [address] [place] [address] Pilo Ortiz PA [address] [place] [address] Health Maintenance Due Date Last Done Comments [...] AM EDT Calcific tendinitis of left shoulder AR ARTHROCENTESIS/ASPIRAT ION/INJECTION MAJOR JOINT/BURSA W/O U/S GUIDANCE [...] MD IMG US PROCEDURES Final Result * AR ARTHROCENTESIS/ASPIRATION/INJECTION MAJOR JOINT/BURSA W/O U/S GUIDANCE (04/13/2025 [...] Result * EGD Anesthesia - MAC; [facility] ENDOSCOPY (03/28/2025 9:04 AM EDT) Anatomical Region Laterality Modality Endoscopy 03/28/2025 8:55 AM EDT Impressions 03/28/2025 9:06 AM EDT - Normal examined duodenum. - Gastritis. Biopsied. - Normal esophagus. Recommendation: - Discharge patient to home. - Await pathology results. - Return to GI clinic as previously scheduled. Narrative 03/28/2025 9:06 AM EDT [facility] GI Patient Name: Raghu Angela Procedure Date: [...] verified by the physician, the nurse, the glove boarder and the water treatment technician in the pre-procedure area in the [...] was normal. Procedure Code(s): --- Professional --- 92416, Esophagogastroduodenoscopy, flexible, transoral; with biopsy, single or multiple Diagnosis Code(s): --- Professional --- K29.70, Gastritis, unspecified, without bleeding CPT copyright 2020 [employer]. All rights reserved. The codes documented in this report are preliminary and upon oil lease buyer review may be revised to meet current compliance requirements. Augusto Trejo MD 03/28/2025 9:06:13 AM This report has been signed electronically.Augusto Trejo MD Number of Addenda: 0 Note Initiated On: 03/28/2025 8:55 AM Scope In: Scope Out: Endoscopy Department at [facility] - [address] [place] [id number] Procedure Note Augusto Trejo MD - 03/28/2025 [facility] Patient Name: Raghu Angela Procedure Date: [...] the physician, the nurse, theanesthetist and the water treatment technician in the pre-procedure area in the [...] was normal. Procedure Code(s): --- Professional --- 85503, Esophagogastroduodenoscopy, flexible, transoral; with biopsy, single or multiple Diagnosis Code(s): --- Professional --- K29.70, Gastritis, unspecified, without bleeding CPT copyright 2020 [employer]. All rights reserved. The codes documented in this report are preliminary and upon oil lease buyer reviewmay be revised to meet current compliance requirements. Augusto Trejo MD 03/28/2025 9:06:13 AM This report has been signed electronically.Augusto Trejo MD Number of Addenda: 0 Note Initiated On: 03/28/2025 8:55 AM Scope In: Scope Out: Endoscopy Department at [facility] - [address] [place] [phone] IMPRESSION: - Normal examined duodenum. - Gastritis. [...] on H&E stain. 03/29/2025 12:14 PM EDT [facility] Gross Description A. Stomach, biopsies: Labeled stomach biopsies . Received in formalin, are four irregular soft to rubbery, daniel-pink to red, tissue fragments, approximately ranging from 0.35 cm to 0.8 cm in greatest diameters, which are wrapped in paper and submitted in toto in one cassette, four pieces, multiple levels. hs/DG 03/29/2025 12:14 PM EDT [facility] Disclaimer Unless otherwise specified, all tissue is 10% NB formalin fixed and paraffin embedded. 03/29/2025 12:14 PM EDT [facility] Tissue Stomach structure / Unknown 03/28/2025 9:01 AM EDT 03/28/2025 9:59 AM EDT us Augusto Trejo MD LAB PATHOLOGY ORDERABLES Fi nal Result [facility] [address] [place] [address], * (ABNORMAL) Comprehensive metabolic panel (09/01/2024 11:46 AM EST) Sodium 140 133 - 145 mmol/L LAB CHEMISTRY METHOD 09/01/2024 2:43 PM EST [facility] Potassium 4.2 3.5 - 5.5 mmol/L LAB CHEMISTRY METHOD 09/01/2024 2:43 PM EST [facility] Chloride 108 96 - 110 mmol/L LAB CHEMISTRY METHOD 09/01/2024 2:43 PM [facility] CO2 26 21 - 32 mmol/L LAB CHEMISTRY METHOD 09/01/2024 2:43 PM [facility] Anion Gap 6 3 - 11 LAB CHEMISTRY METHOD 09/01/2024 2:43 PM [facility] Glucose 136(H) 70 - 100 mg/dL LAB CHEMISTRY METHOD 09/01/2024 2:43 PM [facility] BUN 19 5 - 25 mg/dL LAB CHEMISTRY METHOD 09/01/2024 2:43 PM [facility] Creatinine 1.04 0.70 - 1.30 mg/dL LAB CHEMISTRY METHOD 09/01/2024 2:43 PM [facility] eGFR 81 >=60 mL/min/1. 73m2 LAB CHEMISTRY METHOD 09/01/2024 2:43 PM [facility] Comment:Calculation based on the Chronic Kidney Disease Epidemiology Collaboration (CKD-EPI) equation refit without adjustment for race. BUN/Creatinine Ratio 18.3 LAB CHEMISTRY METHOD 09/01/2024 2:43 PM [facility] Calcium 9.4 8.5 - 10.5 mg/dL LAB CHEMISTRY METHOD 09/01/2024 2:43 PM [facility] AST (SGOT) 24 10 - 42 unit/L LAB CHEMISTRY METHOD 09/01/2024 2:43 PM [facility] ALT (SGPT) 38 10 - 60 unit/L LAB CHEMISTRY METHOD 09/01/2024 2:43 PM [facility] Alkaline Phosphatase 59 42 - 121 unit/L LAB CHEMISTRY METHOD 09/01/2024 2:43 PM [facility] Total Protein 7.0 6.0 - 8.0 g/dL LAB CHEMISTRY METHOD 09/01/2024 2:43 PM [facility] Albumin 4.0 3.2 - 5.0 g/dL LAB CHEMISTRY METHOD 09/01/2024 2:[address] [facility] Total Bilirubin 0.9 0.0 - 1.4 mg/dL LAB CHEMISTRY METHOD 09/01/2024 2:[address] [facility] Blood Venous blood specimen / Unknown Venipuncture / Unknown 09/01/2024 11:46 AM EST 09/01/2024 11:46 AM EST Pilo PORTILLO LAB BLOOD ORDERABLES Fi nal Result [facility] [address] [place] [address], * (ABNORMAL) Lipid panel (04/20/2024) [facility] LDL/HDL Ratio 4 0 - 4 Triglycerides 182(A) 0 - 150 mg/dL Cholesterol 155 0 - 200 mg/dL HDL 36(A) >=40 mg/dL LDL Cholesterol 83 0 - 100 mg/dL Blood Venous blood specimen / Unknown Historical Provider LAB BLOOD ORDERABLES Amber l Result * Colonoscopy (03/16/2020) [facility] Colonoscopy abstracted, no interpretation Anatomical Region Laterality Modality Other Historical Provider HEALTH MAINTENANCE Final Result * Hepatitis C Screening (02/10/2017) [facility] Hepatitis C Screening abstracted Historical Provider HEALTH MAINTENANCE Final Result from Last 3 Months or Most Recently Relevant to Health Maintenance Insurance [employer] Care Teams Pricing Director Relationship Specialty Start Date End Date Olga Doss DO [address] [place] [address] [place] [address] PCP - General Internal Medicine 05/16/24
--- OUTSIDE RECORDS SUMMARY | 2025-06-14 19:47 | XMS_ITS | Encounter Summary ---
Author Organization [facility] Address [address] [place] [address] Care Team Providers Care Payroll Benefits Clerk Name Role Phone Olga Doss Primary Care Provider [phone] Encounter Details Date Type Department Care Team ([facility] st Contact Info) Description 04/30/2025 Results Follow-Up Gastroenterology - [place] 175 [facility] 175 [facility] [address] [place] [phone] Augusto Trejo MD 299 [facility] [address] [place] [address] Social History Tobacco Use Types Packs/Day Years [...] Certified Gastroenterology and Internal Medicine Transplant Hepatology [facility] documented in this encounter Plan of Treatment Upcoming Encounters Date Type Department Care Team (Late st Contact Info) Description 06/20/2025 8:30 AM EST Office Visit Internal Medicine - [place] [address] [place] [address] Pilo Ortiz PA [address] [place] [address] documented as of this encounter Visit Diagnoses Diagnosis Helicobacter pylori infection- Primary Helicobacter pylori (H. pylori) documented in this encounter Care Teams Payroll Benefits Clerk Relationship Specialty Start Date End Date Olga Doss DO [address] [facility] [place] [address] PCP - General Internal Medicine 05/16/24 documented as of this encounter
== END 2025-06-14 10:20 | disposition home or self-care (01) ==
LOC: HO.HAP 10:19
DX: Z13.89 Encounter for screening for other disorder (principal)